=== PATIENT | female | born 1955 | race Caucasian/White ===

== ENCOUNTER 2020-04-02 23:09 | Emergency (ER) | payer BC, OTHER ==
[2020-04-03] MEDS ORDERED: ONDANSETRON HCL INJ/PF 4 MG/2 ML SDV IV ONE ×2 (00:30→06:34)
--- NOTE | 2020-04-03 00:36 | ER Document Report ---
ED General - General Chief Complaint: Syncope Stated Complaint: SYNCOPE Time Seen by Provider: 04/02/20 23:28 - HPI Context: This is a 64-year-old female presenting via EMS after having generalized weakness all day and to syncopal episodes with change in position prior to arrival. Patient is status post bilateral breast reduction and "tummy tuck" on 03/23/2020 patient admits she has not been taking in enough fluids and believes she managed to get dehydrated. Patient denies fever, chills, chest pain, shortness of breath, loss of sense of taste or loss of sense of smell, history of COVID-19 infection, known exposure to persons positive for COVID-19 or exposure to persons under investigation for COVID-19. Patient was prescribed narcotic pain medication after surgery but has not been taking it today because she does not like the way it makes her feel. Patient states her weakness and her passing episodes are exacerbated by changes in position and are alleviated by laying still. Patient states she is having some nausea presently. Associated symptoms: Other - See HPI Exacerbated by: Other - See HPI Relieved by: Other - See HPI - Related Data Allergies/Adverse Reactions: codeine Allergy (Verified 04/02/20 23:23) Penicillins Allergy (Verified 04/02/20 23:23) Past Medical History - General Information source: Patient - Social History Smoking Status: Never Smoker Chew tobacco use (# tins/day): No Frequency of alcohol use: None Drug Abuse: None Lives with: Spouse/Significant other Family History: Reviewed & Not Pertinent Patient has suicidal ideation: No Patient has homicidal ideation: No Past Surgical History: Reports: Other - Breast surgery, "tummy tuck" Review of Systems - Review of Systems Notes: Review of systems as below unless otherwise stated in HPI. CONSTITUTIONAL [No] fever, [No] chills. Positive generalized weakness. Positive syncopal episodes x2 with change in position from sitting to standing EYES [No] eye pain. ENT [No] URI symptoms, [No] sore throat, [No] ear pain. CARDIOVASCULAR [No] chest pain, [No] palpitations, [No] edema. RESPIRATORY [No] Cough, [No] SOB, [No] wheezing. GASTROINTESTINAL [No] abdominal pain, [positive] nausea, [No] Diarrhea, [No] Vomiting, [No] constipation, [No] melena, [No] rectal bleeding. GENITOURINARY [No] dysuria, [No] urinary frequency, [No] hematuria, [No] urinary urgency, [No] vaginal discharge, [No] vaginal bleeding. MUSCULOSKELETAL [No] Back pain. SKIN [No] Rash. NEUROLOGIC [No] Headache, [No] recent seizures, [No] paralysis,[No] parathesias. ENDOCRINE [No] polyuria. HEMO/LYMPATIC [No] easy brusing PSYCHIATRIC [No] depression. Physical Exam - Vital signs Vitals: Temp 98.3 F 04/02/20 23:09 - Notes Notes: CONSTITUTIONAL [Vital signs reviewed, Patient appears comfortable, Alert and oriented X 3, Nor mal stature.] HEAD [Atraumatic, Normocephalic.] EYES [Eyes are normal to inspection, No discharge from eyes, Extraocular muscles intact, Sclera are normal, Conjunctiva are normal.] ENT [External ears normal to inspection, Nose examination normal, Mouth normal to inspection.] NECK [Normal ROM, No jugular venous distention, No meningeal signs, ] RESPIRATORY CHEST [Chest is nontender, Breath sounds normal, No respiratory distress. Patient has surgical dressings that appear clean and intact underneath the bottom of her breasts bilaterally.] CARDIOVASCULAR [RRR, No murmurs, Normal S1 S2, No rub, No gallop.] ABDOMEN [Abdomen is nontender, No pulsatile masses, No other masses, Bowel sounds normal, No distension, No peritoneal signs, No hernias. Patient has postsurgical dressings and MEGHAN drains present in her lateral abdominal wall on both sides. MEGHAN drains appear intact] UPPER EXTREMITY [Inspection normal, No cyanosis, No clubbing, No edema, LOWER EXTREMITY [Inspection normal, No cyanosis, No clubbing, No edema, No calf tenderness, NEURO [No focal motor deficits, No focal sensory deficits, Speech normal.] SKIN [Skin is warm, Skin is dry, Skin is normal color.] PSYCHIATRIC [Normal affect. ] Course - Re-evaluation Re-evalutation: 04/03/20 01:00 After receiving the report on the elevated troponin for this patient, this MD went back into the room to reassess the patient and asked her once again if she had experienced any chest pain or shortness of breath. Patient still denied chest pain but now stated yes she has had some episodes of shortness of breath. Given the patient's recent surgery, syncopal episodes and complaint of dyspnea the possibility of pulmonary embolism, especially with right heart strain given the elevated troponin, is high in the differential. Plan is to get a CTA of the chest to evaluate for PE and heart strain. 04/03/20 05:38 Rapid Covid is negative - Vital Signs Vital signs: Temp Pulse Resp BP Pulse Ox 98.2 F 29 H 100/86 H 94 04/02/20 23:12 04/03/20 04:19 04/03/20 04:19 04/03/20 04:19 - Laboratory Result Diagrams: 04/02/20 23:47 04/02/20 23:47 Laboratory results interpreted by me: 04/02/20 04/02/20 23:47 23:47 WBC 10.7 H Absolute Neuts (auto) 8.4 H Seg Neutrophils % 78.4 H Sodium 135.7 L Carbon Dioxide 20 L Glucose 150 H AST 71 H ALT 47 H Total Protein 6.0 L Albumin 3.4 L - Diagnostic Test Radiology reviewed: Reports reviewed - EKG Interpretation by Me Additional EKG results interpreted by me: 04/03/20 00:40 EKG obtained on 04/02/2020 at 2322 hrs. was interpreted by this MD. Findings: Sinus tachycardia, rate 134, normal axis, TX interval appears to be within normal limits, P waves proceed QRS complex, QRS complex appears narrow, QTC is 430, there are no obvious patterns of ST segment elevation, depression or reciprocal changes seen to suggest acute myocardial ischemia or infarction. Impression: Sinus tachycardia with nonspecific ST segments - Consults Dr. Vieyra, Hospitalist Time consulted: 02:30 - Dr. Vieyra and I discussed this patient. Given that the patient has had recent surgery, thrombolytics do not seem like a good option for the patient. Dr. Vieyra and I agreed that patient would be better served at a facility that has the capability to remove a large PE causing right heart strain Reason for consultation: 04/03/20 02:53 Bilateral pulmonary embolisms with right heart strain, elevated troponin, recent surgical procedure. Dr. Springer, [employer], [facility] Time consulted: 03:10 - Dr. Springer except[facility] He agreed that the patient has too early for the use of thrombolytics but recommends that full dose heparin be initiated. Reason for consultation: 04/03/20 03:11 Bilateral pulmonary embolisms with right heart strain, elevated troponin, recent surgical procedure. Background Investigator, [facility] Time consulted: 03:40 - Background Investigator called this ED to inform me that after case was discussed between crew foreman, vascular surgery and interventional radiology, that surgery and IR would not attempt any procedure and pt needs heparin primarily. coordinator informed this md acceptance at [facility] is being rescended. Dr. Partida, [facility] Hospitalist Time consulted: 04:01 - Dr. Partida agreed to accept the patient but once a rapid Covid test done prior to sending a bed for the patient. Reason for consultation: 04/03/20 04:37 Admission at [facility] was rescinded. This facility does not have plastic surgery and we do not have cardiothoracic or vascular surgery if at some point in the patient's care she would be eligible for the services related to her bilateral pulmonary embolisms with right heart strain. [facility] was contacted because this is the facility where the patient had her plastic surgery done, she has MEGHAN drains in place and is being put on heparin because of her pulmonary emboli. We do not have plastic surgery at this facility to follow the patient, consult from a plastic surgery standpoint and care for her postsurgical wounds. Critical Care Note - Critical Care Note Total time excluding time spent on procedures (mins): 120 - management of bilateral pulmonary emboli with right heart strain Discharge - Discharge Clinical Impression: Bilateral pulmonary embolism, Elevated troponin I level, Right heart enlargement Condition: Stable Disposition: [facility]
[2020-04-03] MEDS: NORMAL SALINE 1000 ML 1,000 ML IV PRN ×2 (00:43→02:06)
[2020-04-03 00:45] LABS: ABSOLUTE BASOPHILS # (AUTO) 0.1 10^3/uL (0.0-0.2); ABSOLUTE EOSINOPHILS # (AUTO) 0.1 10^3/uL (0.0-0.6); ABSOLUTE LYMPHOCYTES (AUTO) 1.6 10^3/uL (0.5-4.7); ABSOLUTE MONOCYTES (AUTO) 0.6 10^3/uL (0.1-1.4); ABSOLUTE NEUT (AUTO) 8.4 10^3/uL (1.7-8.2); BASOPHILS % (AUTO) 0.5 % (0-2); EOSINOPHILS % (AUTO) 0.7 % (0-6); HEMATOCRIT 36.3 % (36.0-47.0); HEMOGLOBIN 12.4 g/dL (12.0-15.5); LYMPHOCYTES % (AUTO) 14.7 % (13-45); MEAN CORPUSCULAR HEMOGLOBIN 30.8 pg (27.0-33.4); MEAN CORPUSCULAR HGB CONC 34.3 g/dL (32.0-36.0); MEAN CORPUSCULAR VOLUME 90 fl (80-97); MONOCYTES % (AUTO) 5.7 % (3-13); PLATELET COUNT 175 10^3/uL (150-450); RED BLOOD COUNT 4.05 10^6/uL (3.72-5.28); RED CELL DISTRIBUTION WIDTH 13.9 % (11.5-14.0); SEGMENTED NEUTROPHILS % (AUTO) 78.4 % (42-78); TOTAL CELLS COUNTED % (AUTO) 100 %; WHITE BLOOD COUNT 10.7 10^3/uL (4.0-10.5)
[2020-04-03 00:51] LABS: ALBUMIN 3.4 g/dL (3.5-5.0); ALKALINE PHOSPHATASE 70 U/L (38-126); ANION GAP 9 (5-19); ASPARTATE AMINO TRANSFERASE 71 U/L (14-36); BILIRUBIN,DIRECT 0.1 mg/dL (0.0-0.4); BILIRUBIN,TOTAL 0.4 mg/dL (0.2-1.3); BLOOD UREA NITROGEN 19 mg/dL (7-20); CALCIUM 9.5 mg/dL (8.4-10.2); CARBON DIOXIDE 20 mmol/L (22-30); CHLORIDE 107 mmol/L (98-107); CREATINE KINASE 46 U/L (30-135); GLUCOSE 150 mg/dL (75-110); POTASSIUM 4.6 mmol/L (3.6-5.0)
[2020-04-03 01:02] LABS: CREATINE KINASE MB 1.67 ng/mL (<4.55)
[2020-04-03 01:04] LABS: TROPONIN I 0.266 ng/mL
[2020-04-03 02:07] LABS: INTERNATIONAL RATION (INR) 1.03; PROTHROMBIN TIME 13.7 SEC (11.4-15.4)
[2020-04-03 02:08] LABS: PARTIAL THROMBOPLASTIN TIME 24.8 SEC (23.5-35.8)
--- NOTE | 2020-04-03 02:18 | RADIOLOGY REPORT (SQ) ---
CLINICAL HISTORY: tachy, dyspnea, recent surgery, ?PE COMPARISON: None. TECHNIQUE: CT CHEST ANGIOGRAPHY WITHOUT THEN WITH IV CONTRAST on 04/03/2020 1:11 AM LEAD SPRINK[employer]. MIPS reconstructions were generated. This exam was performed according to our departmental dose-optimization program, which includes automated exposure control, adjustment of the mA and/or kV according to patient size and/or use of iterative reconstruction technique. MIP images were generated. FINDINGS: Thoracic aorta is normal in course and caliber without aneurysm or dissection. There are extensive bilateral distal right and left pulmonary artery filling defects with extension into the lobar branches diffusely. There are metallic coils within the right middle lobe, right upper lobe and left lower lobe. The heart is borderline in size. Right heart chambers are mildly enlarged. There is mild flattening of the interventricular septum. There is no pericardial effusion. Intrathoracic lymph nodes are not enlarged. There is no pleural effusion, pleural thickening or pneumothorax. Central airways are patent. Lungs are clear with no consolidation, mass or interstitial lung disease. There are no acute abnormalities within the limited images of the upper abdomen. There are no acute osseous findings. No suspicious bony lesions. IMPRESSION: Extensive bilateral pulmonary emboli with evidence of right heart strain.
[2020-04-03] MEDS ORDERED: HEPARIN SOD (PORCINE) 1,000 UNIT/ML 10 ML VIAL IV ONE (03:07)
[2020-04-03] MEDS ORDERED: HEPARIN SODIUM,PORCINE/D5W 25,000 UNIT/250 ML RTUINJ IV PRN (03:07)
[2020-04-03] MEDS ORDERED: HEPARIN SOD (PORCINE) 1,000 UNIT/ML 10 ML VIAL IV PRN (06:09)
[2020-04-03] MEDS ORDERED: HYDROMORPHONE HCL INJ/PF 2 MG/ML AMPULE IV ONE (06:34)
--- NOTE | 2020-04-03 06:41 | EKG REPORT ---
SEVERITY:- ABNORMAL ECG - SINUS TACHYCARDIA INFERIOR INFARCT, AGE INDETERMINATE CONSIDER ANTERIOR INFARCT : Confirmed by: Luis Staley MD 03-Apr-2020 06:40:45
[2020-04-03 08:32] VITALS: BP 106/81
--- NOTE | 2020-04-03 08:32 | ER Document Report ---
Doctor's Note Notes: 04/03/20 08:32 Care of this patient was turned over to me during the beginning of my shift. In short this is a 64-year-old female who presented with syncope, was found to have bilateral pulmonary emboli with heart strain. She is being transferred to [place], as this is where she had her surgery and she still has MEGHAN drains in place. The patient states she feels overall weak but denies any chest pain or shortness of breath. She is very mildly tachycardic, but has been stable with IV fluids and heparin drip. She has no other acute complaints or concerns. She is stable for transport to [facility].
== END 2020-04-03 08:40 | disposition short-term general hospital (02) ==
LOC: ER 23:09
DX: I26.99 Other pulmonary embolism without acute cor pulmonale (principal); R79.89 Other specified abnormal findings of blood chemistry; I51.7 Cardiomegaly; R55 Syncope and collapse; R53.1 Weakness; Z20.828 Contact with and (suspected) exposure to other viral communicable diseases; Z98.890 Other specified postprocedural states; Z88.6 Allergy status to analgesic agent; Z88.0 Allergy status to penicillin
CPT/HCPCS: 96376; 99285; 96361; 96375; 96365; 96366; 36415; 82553; 82550; 85025; 85610; 85730; 0241U ×4; 80053; 84484; 71275; 93005; 93010; J1644 ×2; J1170; J2405; J7030; C9803